=== PATIENT | female | born 1950 | race Caucasian/White ===

== ENCOUNTER 2018-04-27 17:01 | Observation (INO) | payer OTHER, MEDICARE ==
--- NOTE | 2018-04-27 17:20 | CPEKG ---
Heart Rate: 66 RR Interval: 909 P-R Interval: 296 QRSD Interval: 72 QT Interval: 404 QTC Interval: 424 P Leonard: 80 QRS Leonard: 78 T Wave Leonard: 67 EKG Severity - ABNORMAL ECG - EKG Impression: SINUS RHYTHM EKG Impression: FIRST DEGREE AV BLOCK Electronically Signed By: Tommy Ahmadi 28-Apr-2018 16:26:09
[2018-04-27] MEDS ORDERED: ASPIRIN 81 MG CHEWABLE TAB PO ONE (17:30)
--- NOTE | 2018-04-27 17:34 | EDPHY ---
H & P Time Seen by Provider: 04/27/18 17:15 HPI/ROS: CHIEF COMPLAINT: Chest pain HISTORY OF PRESENT ILLNESS: The patient is a 67-year-old female who presents emergency department with chest tightness and shortness of breath. Her symptoms started day overnight. She had tight feeling across her chest as well as palpitations. She developed a mild headache. She took ibuprofen which improved her headache. She felt extremely fatigued over the weekend. Normal tasks caused her to have an abnormal amount of shortness of breath. She swims regularly. She went swimming when she couple she felt lightheaded. She had difficulty dressing due to the fatigue. She went to see her primary care physician, Dr. Howard, and was sent to the emergency department for further evaluation. Patient has no chest tightness or pain at this time. No recent travel. No leg pain or swelling. REVIEW OF SYSTEMS: My complete review of systems is negative except as mentioned in the HPI. Past Medical/Surgical History: Includes osteoporosis Past surgical history: Orthopedic surgery Social history: The patient does not smoke Smoking Status: Never smoked Physical Exam: GENERAL: Well-appearing, in no acute distress, alert. HEENT: Eyes normal to inspection, normal pharynx, no signs of dehydration. NECK: No thyromegaly, no lymphadenopathy, supple. RESPIRATORY: Clear to auscultation bilaterally, no rales, rhonchi or wheezing. CVS: Regular rate and rhythm, no rubs, murmurs, or gallops. ABDOMEN: Soft, nontender, nondistended, no organomegaly. BACK: Normal to inspection, no CVA tenderness. SKIN: Normal color, no rash, warm, dry. No pallor. EXTREMITIES: No pedal edema, no calf tenderness, no Homans sign or cords, no joint swelling. NEURO/PSYCH: Alert and oriented x3, normal mood and affect, normal motor sensory exam. No obvious cranial nerve deficit. Constitutional: Initial Vital Signs Temperature (C) 36.6 C 04/27/18 17:02 Heart Rate 74 04/27/18 17:02 Respiratory Rate 16 04/27/18 17:02 Blood Pressure 124/81 H 04/27/18 17:02 O2 Sat (%) 97 04/27/18 17:02 O2 Delivery Mode Room Air Allergies/Adverse Reactions: meperidine [From Demerol] Allergy (Verified 04/27/18 17:06) Home Medications: Medication Instructions Recorded Calcium Carb W/Vit D [Calcium Carb 1,000 mg PO BID 04/27/18 W/Vit D 500/200 (*)] Cholecalciferol Vit D3 [Vitamin D3 1,000 units PO HS 04/27/18 (*)] Multivitamins [Multivitamin (*)] 1 each PO DAILY 04/27/18 Triamterene/Hctz 75/50 [Maxzide 0.5 tab PO DAILY 04/27/18 75-50 mg Tab (*)] Medical Decision Making - Diagnostics Imaging Results: Imaging Impressions Chest X-Ray 04/27/18 17:30 Impression: 7 cm mass in the upper medial right chest posteriorly, differential considerations as above. Results called to Dr. Bertha Moore at 5:50 PM.. ED Course/Re-evaluation: In the emergency department I discussed possible etiologies with the patient. I answered all her questions. Patient was given aspirin 324 mg orally. EKG shows normal sinus rhythm, normal rate, normal axis, first-degree AV block. There are no ST or T-wave abnormalities. Patient's CBC and chemistry were unremarkable. D-dimer is normal. BNP is 71 Chest x-ray: Please refer the dictated report by Dr. Conner. The patient has a mass noted on her chest x-ray. CT scan was ordered. I discussed the result with the patient. I answered all her questions. On recheck she was stable. CT angio chest: Please refer the dictated report by Dr. Mcadams. The patient has a mass noted. This appears to be neurogenic. I discussed this with Dr. Miller from Neurosurgery. He recommended MRI imaging. I discussed results with the patient. I answered all of her questions. I discussed the case with Dr. Buckley. She will admit the patient. Differential Diagnosis: My differential includes but is not limited to ACS, acute SD, pneumonia, bronchitis, pulmonary embolus, dissection, aneurysm, malignancy, mass, electrolyte abnormality, sugar abnormality, anemia - Data Points Laboratory Results: Laboratory Results 04/27/18 17:21 04/27/18 17:21 04/27/18 04/27/18 04/27/18 17:25 17:21 17:21 WBC RBC Hgb Hct MCV MCH MCHC RDW Plt Count MPV Neut % (Auto) Lymph % (Auto) Mingo % (Auto) Eos % (Auto) Baso % (Auto) Nucleat RBC Rel Count Absolute Neuts (auto) Absolute Lymphs (auto) Absolute Monos (auto) Absolute Eos (auto) Absolute Basos (auto) Absolute Nucleated RBC Immature Gran % Immature Gran # D-Dimer < 0.27 ug/mLFEU ug/mLFEU (0.00-0.50) Sodium 142 mEq/L mEq/L (135-145) Potassium 3.7 mEq/L mEq/L (3.3-5.0) Chloride 99 mEq/L mEq/L (97-110) Carbon Dioxide 27 mEq/l mEq/l (22-31) Anion Gap 16 mEq/L mEq/L (8-16) BUN 19 mg/dL mg/dL (7-23) Creatinine 0.7 mg/dL mg/dL (0.6-1.0) Estimated GFR > 60 Glucose 88 mg/dL mg/dL (70-100) Calcium 10.2 mg/dL mg/dL (8.5-10.4) Total Bilirubin 0.6 mg/dL mg/dL (0.1-1.4) Conjugated Bilirubin 0.4 mg/dL mg/dL (0.0-0.5) Unconjugated Bilirubin 0.2 mg/dL mg/dL (0.0-1.1) AST 25 IU/L IU/L (14-46) ALT 27 IU/L IU/L (9-52) Alkaline Phosphatase 78 IU/L IU/L (38-126) POC Troponin I 0.01 ng/mL ng/mL (0.00-0.08) NT-Pro-B Natriuret Pep 781 pg/mL H pg/mL (0-125) Total Protein 8.0 g/dL g/dL (6.3-8.2) Albumin 4.5 g/dL g/dL (3.5-5.0) Lipase 70 IU/L IU/L (23-300) 18 17:21 WBC 5.94 10^3/uL 10^3/uL (3.80-9.50) RBC 5.05 10^6/uL 10^6/uL (4.18-5.33) Hgb 15.3 g/dL g/dL (12.6-16.3) Hct 46.5 % % (38.0-47.0) MCV 92.1 fL fL (81.5-99.8) MCH 30.3 pg pg (27.9-34.1) MCHC 32.9 g/dL g/dL (32.4-36.7) RDW 13.9 % % (11.5-15.2) Plt Count 364 10^3/uL 10^3/uL (150-400) MPV 11.2 fL fL (8.7-11.7) Neut % (Auto) 57.1 % % (39.3-74.2) Lymph % (Auto) 33.8 % % (15.0-45.0) Mingo % (Auto) 6.7 % % (4.5-13.0) Eos % (Auto) 1.5 % % (0.6-7.6) Baso % (Auto) 0.7 % % (0.3-1.7) Nucleat RBC Rel Count 0.0 % % (0.0-0.2) Absolute Neuts (auto) 3.39 10^3/uL 10^3/uL (1.70-6.50) Absolute Lymphs (auto) 2.01 10^3/uL 10^3/uL (1.00-3.00) Absolute Monos (auto) 0.40 10^3/uL 10^3/uL (0.30-0.80) Absolute Eos (auto) 0.09 10^3/uL 10^3/uL (0.03-0.40) Absolute Basos (auto) 0.04 10^3/uL 10^3/uL (0.02-0.10) Absolute Nucleated RBC 0.00 10^3/uL 10^3/uL (0-0.01) Immature Gran % 0.2 % % (0.0-1.1) Immature Gran # 0.01 10^3/uL 10^3/uL (0.00-0.10) D-Dimer Sodium Potassium Chloride Carbon Dioxide Anion Gap BUN Creatinine Estimated GFR Glucose Calcium Total Bilirubin Conjugated Bilirubin Unconjugated Bilirubin AST ALT Alkaline Phosphatase POC Troponin I NT-Pro-B Natriuret Pep Total Protein Albumin Lipase Medications Given: Discontinued Medications Aspirin (Aspirin) 324 mg PO EDNOW ONE Stop: 04/27/18 17:31 Last Admin: 06/18/18 18:15 Dose: 324 mg Point of Care Test Results: Chemistry 04/27/18 17:25 POC Troponin I 0.01 ng/mL ng/mL (0.00-0.08) Departure - Departure Disposition: [facility] Inpatient Acute Clinical Impression: Mass Chest pain Qualifiers: Chest pain type: unspecified Qualified Code(s): R07.9 - Chest pain, unspecified Condition: Good
[2018-04-27 17:45] LABS: PLATELET COUNT 364 10^3/uL (150-400)
[2018-04-27] MEDS ORDERED: IOPAMIDOL (ISOVUE 370) 100 ML BTL IV ONE (18:17)
[2018-04-27] MEDS ORDERED: GADOBUTROL 10 ML VIAL IVP ONE (20:06)
[2018-04-27] MEDS ORDERED: ONDANSETRON 4 MG/2 ML VIAL IVP PRN (21:42)
[2018-04-27] MEDS ORDERED: oxyCODONE IR 5 MG TAB PO PRN (21:42)
[2018-04-27] MEDS ORDERED: ACETAMINOPHEN 325 MG TAB PO PRN (21:42)
--- NOTE | 2018-04-27 22:05 | GHP ---
[f rep st] HISTORY AND PHYSICAL DATE OF ADMISSION: 04/27/2018 CHIEF COMPLAINT: Shortness of breath. HISTORY: The patient is a 67-year-old female who has had extreme shortness of breath for the last 2 days. She is very active at baseline, does yoga and swims and could not get through her usual workou ts. She also has a mid chest tightness. She has been chest pain free since this morning. She did w ork through her entire day and felt relatively normal sitting at her desk. When she gets up to do ev en mild activities though she gets fatigue and extraordinary short of breath. She could not even get dressed. She will get very diaphoretic. PAST MEDICAL HISTORY: Hypertension. MEDICATIONS: Please see computerized record for full detailed list. ALLERGIES: Meperidine. SOCIAL HISTORY: No smoking, 1-2 glasses of wine a few times a week. Lives with her . 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 REVIEW OF SYSTEMS: Complete review of systems obtained. Review of systems negative regarding consti tutional, HEENT, GI, pulmonary, cardiovascular, , hematology, skin, muscular endocrine, psych, exce pt for positives and negatives as in HPI. FAMILY HISTORY: Reviewed, noncontributory to presenting complaint. PHYSICAL EXAMINATION: GENERAL: Well-developed, well-nourished female, in no acute distress. VITAL SIGNS: Temperature is 36.6, pulse 68, blood pressure 127/77, saturating 97% on room air. EYES: Nor mal conjunctivae. Pupils equal and reactive to light. ENT: Normal ears, nose. Hearing intact. No rmal teeth. Oropharynx moist. NECK: Trachea midline. No thyromegaly. CHEST: Normal respiratory effort. LUNGS: Clear to auscultation bilaterally. CARDIOVASCULAR: Regular rate, rhythm. No murmu r. No lower extremity edema. ABDOMEN: Soft, nontender. No hepatosplenomegaly. SKIN: Warm, dry, intact. No rash. MUSCULOSKELETAL: No cyanosis or clubbing. Strength 5/5 upper and lower extremiti es. NEUROLOGIC: Cranial nerves intact. Normal sensation to light touch. PSYCH: Alert and oriente d x3. Normal affect. Normal judgment. Normal memory. LABORATORY DATA: White count 5.94, hematocrit 46.5, platelets 364. Sodium 142, potassium 3.7, chlor micaela 99, bicarb 27, BUN 19, creatinine 0.9, glucose 88. LFTs are normal. BNP is 781. D-dimer is neg ative. EKG viewed by me. My personal interpretation is normal sinus rhythm. No ST-T wave changes. CT angiogram of chest is negative for PE. It shows a right paraspinal mass at T4-T5 that narrows th e trachea at the jaxon. ASSESSMENT/PLAN: 1. Paraspinal mass. MRI thoracic spine is pending. It appears neurogenic in origin. Dr. Fariba valladares see her in consultation. 2. Shortness of breath. Pulmonary embolus has been ruled out. This mass is causing a narrowing of the trachea, and I suspect this is the source of her chest pain and shortness of breath. 3. Hypertension. Continue Maxzide. CODE STATUS: Full. ADMISSION STATUS: We will admit to observation and reevaluate tomorrow regarding ongoing need for ho spitalization. DVT PROPHYLAXIS: She is low risk. /[id number]/MODL
[2018-04-28] MEDS ORDERED: TRIAMTERENE/HCTZ 75/50 1 EACH TAB PO SCH (09:00)
--- NOTE | 2018-04-28 09:00 | ASMTCMCOM ---
CM Note CM Note Notes: Chart reviewed for discharge planning purposes, 67 year old female admitted via ED with complaints of SOB. Mass seen on thoracic MRI. Workup in progress. Needs TBD. CM to follow. Plan: TBD Date Signed: 04/28/2018 08:38 AM Electronically Signed By:Urvashi Maldonado RN
[2018-04-28 11:30] VITALS: BP 115/70
--- NOTE | 2018-04-28 12:42 | NEUSURGPN ---
Assessment/Plan: Assessment: 67 yr old F with SOB, large right T4/5 possible schwannoma paraspinal mass Plan: Please see dictated consult when available for details. -Dr Broderick will be by to see patient this afternoon to establish/confirm plan -Thoracic MRI shows 6.3x4.2x5.5 cm right paraspinal mass-possible schwannoma, images reviewed with patient, and daughter at bedside -Patient neurologically intact -SOB improved with mostly bedrest -Please call neurosurgery with questions/concerns Subjective: Feeling well, sitting up in bed eating a burrito Objective: AxO x3 PERRLA CN 2-12 grossly intact 5/5 BUE, BLE Sensation intact throughout all dermatomal distributions BUE, BLE Neuro Check Frequency: per routine Urinary Catheter in Place: No - Physician Discussed Patient with Dr.: Broderick (Dr Broderick will be by this afternoon to see patient) Neurosurgery Physical Exam - Vitals, I&O, Labs I and O 04/27/18 04/28/18 04/29/18 05:59 05:59 05:59 Intake Total 550 Balance 550 Weight 62.823 kg Intake: Oral (ml) 550 IV Infused (ml) 0 Other: Intake Quantity Yes Sufficient Number of Voids Toilet 1 Vital Signs Temp Pulse Resp BP Pulse Ox 36.8 C 70 16 115/70 94 04/28/18 08:06 04/28/18 11:28 04/28/18 11:28 04/28/18 11:28 04/28/18 11:28 ICD10 Worksheet Patient Problems: Problems Problem Status Onset Chest pain Acute Mass Acute
--- NOTE | 2018-04-28 15:12 | ASMTLACE ---
LACE Length of stay for Answers: Less than 1 day current admission Comorbidities - select Answers: Any tumor (including all that apply lymphoma or leukemia) Other Notes: thoracic mass # of Emergency department Answers: 1-2 visits in the last 6 months Score: 4 Date Signed: 04/28/2018 03:11 PM Electronically Signed By:Urvashi Maldonado RN
--- NOTE | 2018-04-28 15:15 | GDS ---
[f rep st] DISCHARGE SUMMARY DISCHARGE DIAGNOSES: 1. Shortness of breath, thought to be due to a paraspinal mass causing narrowing of the trachea. 2. History of hypertension. 3. History of melanoma. CONSULTANTS: Dr. Yahir Broderick, [facility], [facility]. HOSPITAL COURSE: Shortness of breath: Patient presented to the ER with shortness of breath. She hawkins bsequently had a CT angio of the chest done, which revealed a paraspinal mass. A thoracic spine MRI was done, which confirmed this mass that was described as a large right paraspinal mass at the T4-T5 level with characteristics suggestive of a peripheral nerve sheath tumor, such as a schwannoma or lucio rofibroma. On day of discharge, the patient states she is feeling well. She is no longer short of short of jasmine th. She would like to be discharged from the hospital soon as possible. Prior to discharge, she was evaluated by Dr. Yahir Broderick who is recommending a biopsy of the mass, but is suggesting that this be done at a tertiary care center given the level of the lesion. PHYSICAL EXAMINATION: VITAL SIGNS: On day of discharge, blood pressure 115/70, pulse of 70, respira tory rate 16, O2 saturation 94% on room air. Temperature afebrile. PULMONARY: Normal respiratory e ffort. There is no wheezing. There is no stridor. NEURO: Cranial nerves 2-12 grossly intact. Mov es all extremities. There is no focal numbness or weakness. PERTINENT DIAGNOSTIC DATA: CT-A of the chest on 04/27/2018, refer to report. Thoracic spine MRI done 04/27/2018, refer to report. DISCHARGE MEDICATIONS: Please refer to discharge medication reconciliation in [facility] for details. There were no new medications started this hospital stay. DISCHARGE INSTRUCTIONS: The patient will be discharged from the hospital where she should follow up with Neurosurgery for further biopsy and definitive treatment. She was instructed to seek emergency medical care if she develops any recurrent shortness of breath or symptoms, such as new neurologic ch anges given her paraspinal mass. The patient verbalized understanding to these recommendations and a grees to seek followup. Copy requested to: Michelle King MD /[id number]/MODL
--- NOTE | 2018-04-28 16:34 | GCON ---
[f rep st] CONSULTATION INPATIENT CONSULTATION CHIEF COMPLAINT: Shortness of breath, T4-5/thoracic mass HISTORY OF PRESENT ILLNESS: The patient is a 67-year-old female who presented to the emergency department yesterday with shortness of breath for the last 2 days. She is very active and works out on a daily basis. She noticed on Friday when climbing just 1 flight of stairs, she became extremely fatigued and short of breath. She denies any chest pain or shortness of breath at this time. The patient denies any weakness in her upper or lower extremities and denies any saddle anesthesia or any incontinence issues with her bladder. REVIEW OF SYSTEMS: Ten-point review of systems was performed and negative aside from what was mentioned in the HPI. PAST MEDICAL HISTORY: Hypertension, melanoma on the leg 3 years ago. ALLERGIES: Meperidine. CURRENT MEDICATIONS: Calcium supplement, multivitamin, triamterene hydrochlorothiazide 75/50.5 tab p.o. daily. PAST SURGICAL HISTORY: The patient denies any surgical history. 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 She is and lives with her . She denies any use of illicit drugs and does not smoke cigarettes. She drinks 1-2 glasses of wine a few times per week. FAMILY HISTORY: Family history is reviewed and noncontributory to her present complaint. DIAGNOSTICS/LABORATORY RESULTS: White blood cell count 5.94, hemoglobin 15.3, hematocrit 46.5, platelets are 364. D-dimer is less than 0.27. Sodium 142, potassium 3.7, BUN 19, creatinine 0.7, glucose 88, AST 25, ALT 27. BNP is 781. DIAGNOSTIC IMAGING: MRI performed of the thoracic spine on April 27, 2018, without contrast demonstrates a large right paraspinal mass at the T4-5 level which has characteristics suggestive of a peripheral nerve sheath tumor such as a schwannoma or neurofibroma. Metastatic disease and lymphoma are unlikely. The mass does not extend into the spinal canal. Small T1 hyperintense lesions in the T6 and T9 vertebral bodies which are likely benign hemangiomas. There is a widely patent central canal and neural foramina with no cord compression. CTA of the chest and thorax performed on April 27, 2018, demonstrates no evidence of pulmonary embolic disease. Again, there is seen a right paraspinal mass at the T4-5 level, which is likely neurogenic in origin. Mild narrowing of the trachea at the jaxon due to mass effect of the right paraspinal mass. Mild airway disease. No pneumonia or interstitial lung disease. VITAL SIGNS: Blood pressure is 115/70, heart rate is 70, respiratory rate 16, oxygen saturation 94% on room air. Temperature is 36.3 Celsius. PHYSICAL EXAM: HEENT: Head is normocephalic and atraumatic. Pupils equal, round, and reactive to light. EOMI is intact. Full visual chicas by confrontation. RESPIRATORY: Deferred. CARDIAC: Deferred. ABDOMEN, GENITOURINARY, AND RECTAL: Deferred. NEUROLOGIC: The patient is awake and alert, oriented to name, place, location, date, time, and situation. Her memory is intact to immediate past and current events. Speech no aphasia or dysphonia. Cranial nerves 2-12 are grossly intact. 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 Sensation is grossly intact to light touch throughout all dermatomal distributions in both her bilateral upper and lower extremities. Negative straight leg raise. Reflexes biceps, knee jerk are 2+/ 4. Toes are downgoing bilaterally. ASSESSMENT AND PLAN: The patient is an active 67-year-old female who presented to the emergency department with shortness of breath. The patient was found to have a large T4-5 right paraspinal mass which is likely a schwannoma or a neurofibroma. The mass does not extend into the spinal canal. The patient is completely neurologically intact. She denies any shortness of breath or chest pain at this time and believes this is induced with any kind of exertion. Dr. Broderick spoke to the patient and her family at the bedside and recommended that she seek a specialist at [facility] in [place]. The patient was given names and contact information of Dr. Dino Mccarthy and Dr. Ruel Chaney at the [facility] for her to contact. The patient may discharge home from a neurosurgery standpoint. She does not need to follow up with us, but again was recommended to make an appointment with the [facility] surgeons for their treatment recommendation. Patient was seen and examined by Dr. Broderick at the bedside today April 28, 2018, at approximately 1450. NEUROSURGERY ATTENDING NOTE I met with the patient on the day of the consult and reviewed the imaging results and plans with her, her daughter, and her . Given the size and location of the lesion, I have recommended follow-up at the [facility] for surgical opinion and likely resection. Explained the difficult location of the mass and need for a multi-speciality team in the approach. They were in agreement and will be discharged home by the Medicine team. All questions were answered. /[id number]/MODL MTDD
== END 2018-04-28 15:55 | disposition home or self-care (01) ==
LOC: F1N 21:10
PROVIDERS: ADMIT Internal Medicine; ATTEND Family Medicine
DX: R06.02 Shortness of breath (principal); R22.2 Localized swelling, mass and lump, trunk; R53.83 Other fatigue; I10 Essential (primary) hypertension; M81.0 Age-related osteoporosis without current pathological fracture; Z85.820 Personal history of malignant melanoma of skin
CPT/HCPCS: 71046; 71275; 72157; 93005; A9585; G0378; Q9967; 84484-PO